=== PATIENT | male | born 1955 | race Hispanic/Latino ===

== ENCOUNTER 2017-02-01 13:21 | Outpatient (CLI) | payer OTHER ==
[2017-02-01] MEDS ORDERED: PROVENTIL IH ONE (13:33)
== END 2017-02-01 13:22 | disposition home or self-care (01) ==
LOC: PF 13:21
PROVIDERS: ATTEND Internal Medicine
DX: R06.02 Shortness of breath (principal)
CPT/HCPCS: 94060; 94640